=== PATIENT | female | born 1990 | race Caucasian/White ===

== ENCOUNTER 2017-09-14 03:44 | Emergency (ER) | payer OTHER, MEDICAID ==
[~2017-09-14] VITALS: Ht 152.4 cm; Wt 45.4 kg
[~2017-09-14 03:44] MED LIST: ADVAIR HFA 230M12 GM INH; BENTYL 20 MG TA20 M1 PO; CLARITIN10 MG PO; HYDROCODONE-AP1 EAC6 PO; SINGULAIR 10 MG10 M1 PO; ZANTAC 150MG T150 MG PO; ZOFRAN ODT4 MG PO
[2017-09-14] MEDS ORDERED: VENTOLIN HFA 1818 GM (03:57)
[2017-09-14] MEDS ORDERED: DUONEB 2.5-0.5 M3 ML (03:58)
[2017-09-14] MEDS ORDERED: PREDNISONE50 MG PO (04:44)
[2017-09-14 04:55] VITALS: BP 109/74
== END 2017-09-14 04:56 | disposition home or self-care (01) ==
LOC: M.ERS 03:44
DX: J45.909 Unspecified asthma, uncomplicated (principal); F17.210 Nicotine dependence, cigarettes, uncomplicated

== ENCOUNTER 2017-11-10 06:14 | Emergency (ER) | payer OTHER, MEDICAID ==
[~2017-11-10] VITALS: Ht 152.4 cm; Wt 45.4 kg
[~2017-11-10 06:14] MED LIST changes: +DUONEB 2.5-0.5 M3 ML; +PREDNISONE50 MG PO; +VENTOLIN HFA 1818 GM
[2017-11-10 07:10] LABS: URINE BILIRUBIN NEGATIVE (Negative); URINE BLOOD NEGATIVE (Negative); URINE CLARITY CLEAR; URINE COLOR YELLOW; URINE GLUCOSE-RANDOM NEGATIVE (Negative); URINE KETONES NEGATIVE (Negative); URINE LEUKOCYTES-REFLEX NEGATIVE (Negative); URINE NITRITE-REFLEX NEGATIVE (Negative); URINE PROTEIN NEGATIVE (Negative); URINE UROBILINOGEN 0.2 E.U./dl (0.2-1.0)
[2017-11-10] MEDS ORDERED: PREDNISONE 20 M20 M1 PO (07:19)
[2017-11-10] MEDS ORDERED: VENTOLIN HFA 1818 GM INH (07:19)
[2017-11-10 07:27] VITALS: BP 91/60
[2017-11-10 07:34] LABS: AMP/METHAMP Negative (Negative); BARBITURATES Negative (Negative); BENZODIAZEPINES Negative (Negative); COCAINE Negative (Negative); OPIATES Negative (Negative); PCP Negative (Negative); THC Negative (Negative)
[2017-11-10 09:26] LABS: METHADONE Negative (Negative)
== END 2017-11-10 07:28 | disposition home or self-care (01) ==
LOC: M.ERS 06:14
PROVIDERS: Personal Emergency Response Attendant
DX: J45.901 Unspecified asthma with (acute) exacerbation (principal); F17.210 Nicotine dependence, cigarettes, uncomplicated

== ENCOUNTER 2018-01-25 04:19 | Emergency (ER) | payer OTHER, MEDICAID ==
[~2018-01-25] VITALS: Ht 152.4 cm; Wt 45.4 kg
[~2018-01-25 04:19] MED LIST changes: +PREDNISONE 20 M20 M1 PO; +VENTOLIN HFA 1818 GM INH
[2018-01-25] MEDS ORDERED: SINGULAIR 10 MG10 M1 PO (04:27)
[2018-01-25] MEDS ORDERED: PREDNISONE50 MG PO (05:06)
[2018-01-25] MEDS ORDERED: PROAIR HFA8.5 GM INH (05:06)
[2018-01-25 05:15] VITALS: BP 122/63
== END 2018-01-25 05:16 | disposition home or self-care (01) ==
LOC: M.ERS 04:19
DX: J45.901 Unspecified asthma with (acute) exacerbation (principal); F17.210 Nicotine dependence, cigarettes, uncomplicated; Z98.890 Other specified postprocedural states

== ENCOUNTER 2018-06-20 23:59 | Emergency (ER) | payer OTHER, MEDICAID ==
[~2018-06-20] VITALS: Ht 152.4 cm; Wt 45.4 kg
[~2018-06-20 23:59] MED LIST changes: +PROAIR HFA8.5 GM INH
[2018-06-21] MEDS ORDERED: PREDNISONE50 MG PO (01:22)
[2018-06-21 01:28] VITALS: BP 104/63
== END 2018-06-21 01:33 | disposition home or self-care (01) ==
LOC: M.ERS 23:59
DX: R22.0 Localized swelling, mass and lump, head (principal); T39.315A Adverse effect of propionic acid derivatives, initial encounter; Y92.9 Unspecified place or not applicable; J45.909 Unspecified asthma, uncomplicated; Z98.890 Other specified postprocedural states; F17.210 Nicotine dependence, cigarettes, uncomplicated